=== PATIENT | female | born 1940 | race Caucasian/White ===

== ENCOUNTER 2021-09-18 12:00 | Inpatient (IN) | payer MEDICARE ==
[~2021-09-18] VITALS: Ht 149.9 cm; Wt 48.1 kg
[2021-09-18] MEDS ORDERED: MIRT-90 PO (12:14)
[2021-09-18] MEDS ORDERED: SIMV-46 PO (12:14)
[2021-09-18] MEDS ORDERED: ACET325T53 PO (12:14)
[2021-09-18] MEDS ORDERED: MELA3TAB41 PO (12:14)
[2021-09-18] MEDS ORDERED: METO-357 PO (12:14)
[2021-09-18] MEDS ORDERED: DOCU-141 PO (12:14)
[2021-09-18] MEDS ORDERED: ASPI-1169 PO (12:14)
[2021-09-18] MEDS ORDERED: BISA10SU11 RC (12:14)
[2021-09-18] MEDS ORDERED: BISA5TAB10 PO (12:14)
[2021-09-18] MEDS ORDERED: SUMA100T PO (12:14)
[2021-09-18] MEDS ORDERED: PANT40TA49 PO (12:14)
[2021-09-18] MEDS ORDERED: ACETAMINOPHEN 325 MG TABLET PO PRN ×2 (12:30→13:00)
[2021-09-18] MEDS ORDERED: MAG HYDROX/AL HYDROX/SIMETH 30 ML UDC PO PRN (12:30)
[2021-09-18] MEDS ORDERED: BLOOD SUGAR DIAGNOSTIC 1 EACH STRIP IN ONE (12:30)
[2021-09-18] MEDS ORDERED: MAGNESIUM HYDROXIDE 30 ML UDC PO PRN (12:30)
[2021-09-18 12:36] VITALS: BP 139/69
[2021-09-18] MEDS ORDERED: SUMATRIPTAN SUCCINATE 100 MG TABLET PO PRN (13:00)
[2021-09-18] MEDS ORDERED: BISACODYL (5 MG) 5 MG TABLET.DR PO PRN (13:00)
[2021-09-18] MEDS ORDERED: Medication Not On Formulary EA (Melatonin 3 MG) PO PRN (13:00)
[2021-09-18] MEDS ORDERED: DOCUSATE SODIUM 100 MG CAPSULE PO PRN (13:00)
[2021-09-18] MEDS ORDERED: BISACODYL SUPP (10 MG) 10 MG/SUPP.RECT SUPP.RECT RC PRN (13:00)
[2021-09-18 16:00] VITALS: BP 148/80
[2021-09-18] MEDS ORDERED: LORAZEPAM 0.5 MG TABLET PO PRN (16:00)
[2021-09-18] MEDS ORDERED: SERTRALINE HCL 25 MG TABLET PO SCH (17:00)
[2021-09-18 21:07] VITALS: BP 143/69
[2021-09-18] MEDS: SIMVASTATIN 20 MG TABLET PO SCH (21:25)
[2021-09-18] MEDS: MIRTAZAPINE 15 MG TABLET PO SCH (21:25)
[2021-09-19 07:40] LABS: ALBUMIN 3.3 g/dL (3.4-5.0); BILIRUBIN,TOTAL 0.9 mg/dL (0.2-1.0); CALCIUM, SERUM 8.8 mg/dL (8.5-10.1); CREATININE 0.7 mg/dL (0.6-1.3); TOTAL PROTEIN, SERUM 6.8 g/dL (6.4-8.2)
[2021-09-19 08:00] VITALS: BP 129/75
[2021-09-19] MEDS: PANTOPRAZOLE 40 MG TABLET.DR PO SCH (08:04)
[2021-09-19] MEDS: METOPROLOL SUCCINATE 50 MG TAB.SR.24H PO SCH (08:04)
[2021-09-19] MEDS: ASPIRIN 81 MG TAB.CHEW PO SCH (08:04)
[2021-09-19 13:01] LABS: CREATININE 0.7 mg/dL (0.6-1.3)
[2021-09-19] MEDS: SERTRALINE HCL 25 MG TABLET PO SCH (16:27)
[2021-09-19 20:00] VITALS: BP 143/80
[2021-09-19 20:21] VITALS: BP 146/80
[2021-09-19] MEDS: MIRTAZAPINE 15 MG TABLET PO SCH (21:03)
[2021-09-19] MEDS: SIMVASTATIN 20 MG TABLET PO SCH (21:04)
[2021-09-20 08:00] VITALS: BP 142/77
[2021-09-20] MEDS: ASPIRIN 81 MG TAB.CHEW PO SCH (08:03)
[2021-09-20] MEDS: PANTOPRAZOLE 40 MG TABLET.DR PO SCH (08:03)
[2021-09-20] MEDS: METOPROLOL SUCCINATE 50 MG TAB.SR.24H PO SCH (08:04)
[2021-09-20] MEDS: SERTRALINE HCL 25 MG TABLET PO SCH (13:48)
[2021-09-20 16:00] VITALS: BP 122/77
[2021-09-20 20:10] VITALS: BP 142/75
[2021-09-20] MEDS: MIRTAZAPINE 15 MG TABLET PO SCH (21:09)
[2021-09-20] MEDS: SIMVASTATIN 20 MG TABLET PO SCH (21:09)
[2021-09-21 08:00] VITALS: BP 121/78
[2021-09-21] MEDS: PANTOPRAZOLE 40 MG TABLET.DR PO SCH (09:06)
[2021-09-21] MEDS: ASPIRIN 81 MG TAB.CHEW PO SCH (09:06)
[2021-09-21] MEDS: METOPROLOL SUCCINATE 50 MG TAB.SR.24H PO SCH (09:06)
[2021-09-21] MEDS: SERTRALINE HCL 25 MG TABLET PO SCH (13:29)
[2021-09-21 16:00] VITALS: BP 145/80
[2021-09-21 20:05] VITALS: BP 134/64
[2021-09-21 20:15] VITALS: BP 134/64
[2021-09-21] MEDS: MIRTAZAPINE 15 MG TABLET PO SCH (21:11)
[2021-09-21] MEDS: SIMVASTATIN 20 MG TABLET PO SCH (21:11)
[2021-09-21] MEDS: TEMAZEPAM 7.5 MG CAPSULE PO PRN (23:40)
[2021-09-22 08:00] VITALS: BP 138/61
[2021-09-22] MEDS: ASPIRIN 81 MG TAB.CHEW PO SCH (08:39)
[2021-09-22] MEDS: METOPROLOL SUCCINATE 50 MG TAB.SR.24H PO SCH (08:40)
[2021-09-22] MEDS: PANTOPRAZOLE 40 MG TABLET.DR PO SCH (08:40)
[2021-09-22] MEDS: SERTRALINE HCL 25 MG TABLET PO SCH (12:22)
[2021-09-22 16:00] VITALS: BP 128/65
[2021-09-22 20:00] VITALS: BP 122/56
[2021-09-22] MEDS: SIMVASTATIN 20 MG TABLET PO SCH (21:07)
[2021-09-22] MEDS: MIRTAZAPINE 15 MG TABLET PO SCH (21:07)
[2021-09-22] MEDS: TEMAZEPAM 7.5 MG CAPSULE PO PRN (23:15)
[2021-09-23 08:00] VITALS: BP 145/69
[2021-09-23] MEDS: ASPIRIN 81 MG TAB.CHEW PO SCH (08:39)
[2021-09-23] MEDS: PANTOPRAZOLE 40 MG TABLET.DR PO SCH (08:40)
[2021-09-23] MEDS: METOPROLOL SUCCINATE 50 MG TAB.SR.24H PO SCH (08:40)
[2021-09-23] MEDS: SERTRALINE HCL 25 MG TABLET PO SCH (12:32)
[2021-09-23 16:00] VITALS: BP 129/68
[2021-09-23 20:00] VITALS: BP 140/72
[2021-09-23] MEDS: MIRTAZAPINE 15 MG TABLET PO SCH (20:14)
[2021-09-23] MEDS ORDERED: risperiDONE 0.25 MG TABLET PO SCH (21:00)
[2021-09-23] MEDS: SIMVASTATIN 20 MG TABLET PO SCH (21:03)
[2021-09-23 21:30] VITALS: BP 132/68
[2021-09-23] MEDS: TEMAZEPAM 7.5 MG CAPSULE PO PRN (22:45)
[2021-09-24 08:00] VITALS: BP 133/74
[2021-09-24] MEDS: ASPIRIN 81 MG TAB.CHEW PO SCH (09:18)
[2021-09-24] MEDS: METOPROLOL SUCCINATE 50 MG TAB.SR.24H PO SCH (09:18)
[2021-09-24] MEDS: PANTOPRAZOLE 40 MG TABLET.DR PO SCH (09:18)
[2021-09-24] MEDS: SERTRALINE HCL 25 MG TABLET PO SCH (12:20)
[2021-09-24 16:00] VITALS: BP 137/75
== END 2021-09-24 16:15 | disposition home or self-care (01) | DRG 881 ==
LOC: GPS 12:00
PROVIDERS: ADMIT Psychiatry & Neurology Psychosomatic Medicine; ATTEND Nurse Practitioner Acute Care
DX: F32.9 Major depressive disorder, single episode, unspecified (principal); R45.851 Suicidal ideations; F60.3 Borderline personality disorder; F41.0 Panic disorder [episodic paroxysmal anxiety]; Z91.51 Personal history of suicidal behavior; E78.5 Hyperlipidemia, unspecified; K21.9 Gastro-esophageal reflux disease without esophagitis; I10 Essential (primary) hypertension; Z79.899 Other long term (current) drug therapy; Z91.14 Patient's other noncompliance with medication regimen
CPT/HCPCS: 36415; 80053-TC; 80061-TC; 82565-TC; 87081-TC